=== PATIENT | female | born 1955 | race Asian ===

== ENCOUNTER → 2016-07-06 | Outpatient (CLI) | payer BC | END | disposition home or self-care (01) | LOC: C.MAMM 10:15 | PROVIDERS: ATTEND Family Medicine | DX: M85.80 Other specified disorders of bone density and structure, unspecified site (principal); Z78.0 Asymptomatic menopausal state ==

== ENCOUNTER → 2017-05-26 | Outpatient (CLI) | payer BC ==
--- NOTE | 2017-05-28 08:14 | MAMMOGRAPHY REPORT ---
BILATERAL DIGITAL SCREENING MAMMOGRAM TOMOSYNTHESIS WITH CAD: 05/26/2017 CLINICAL HISTORY: Routine screening. Patient has no complaints. TECHNIQUE: Breast tomosynthesis in addition to standard 2D mammography was performed. Current study was also evaluated with a Computer Aided Detection (CAD) system. COMPARISON: Comparison is made to exams dated: 05/11/2016 mammogram, 02/28/2015 mammogram, 01/03/2014 ma mmogram, 12/29/2012 mammogram, 12/29/2011 mammogram, and 12/08/2010 mammogram - [facility] ter. BREAST COMPOSITION: The tissue of both breasts is heterogeneously dense, which may obscure small mas ses. FINDINGS: The parenchymal pattern is unchanged. No developing mass, architectural distortion or clus ter of suspicious microcalcifications is seen in either breast. IMPRESSION: ACR BI-RADS CATEGORY 2: BENIGN There is no mammographic evidence of malignancy. A 1 year screening mammogram is recommended. The pa tient will receive written notification of the results. Approximately 10% of breast cancers are not detected with mammography. A negative mammographic report should not delay biopsy if a clinically suggestive mass is present. Britt De La Fuente M.D. ay/:05/26/2017 17:02:38 Powder Line Repairer: Amanda Grubbs, [facility] letter sent: Normal 1/2 BI-RADS Code: ACR BI-RADS Category 2: Benign
== END | disposition home or self-care (01) ==
LOC: C.MAMM 08:32
PROVIDERS: ATTEND Family Medicine
DX: Z12.31 Encounter for screening mammogram for malignant neoplasm of breast (principal)

== ENCOUNTER → 2017-06-11 | Outpatient (CLI) | payer BC ==
[~2017-06-11] MED LIST: MECL1TAB42 PO; ONDA4TAB10 SL
--- NOTE | 2017-06-11 17:01 | DIAGNOSTIC IMAGING REPORT ---
CHEST 2 VIEWS ROUTINE HISTORY: 62 years-old Female COUGH acute cough COMPARISON: Chest radiographs 07/15/2012 TECHNIQUE: PA and lateral views of the chest FINDINGS: Cardiomediastinal and hilar silhouettes are within normal limits. Mild hyperinflation and mild biapical pleural-parenchymal scarring redemonstrated without pneumothorax, pleural effusion, focal airspace consolidation or overt pulmonary edema. Bones of the chest appear grossly intact. IMPRESSION: No acute cardiopulmonary process. The above report was generated using voice recognition software. It may contain grammatical, syntax or spelling errors. Electronically signed by: David Gann M.D. 06/11/2017 5:00 PM Dictated Date/Time: 06/11/2017 4:58 PM
== END | disposition home or self-care (01) ==
LOC: C.RAD1850 16:45
PROVIDERS: ATTEND Family Medicine
DX: R05 Cough (principal)

== ENCOUNTER 2017-06-16 09:24 | Emergency (ER) | payer BC ==
[~2017-06-16] VITALS: Ht 154.9 cm; Wt 51.7 kg
[2017-06-16 09:33] VITALS: TEMP 36.4; O2SAT 97; Ht 154.9 cm; Wt 51.7 kg
[2017-06-16] MEDS ORDERED: MECLIZINE HCL 25 MG TAB PO STA (09:59)
[2017-06-16] MEDS ORDERED: ONDANSETRON INJ 2 MG/ML 2 ML VIAL IV STA (09:59)
[2017-06-16] MEDS ORDERED: LORAZEPAM 2 MG/ML 1 ML VIAL IV STA (09:59)
--- NOTE | 2017-06-16 10:01 | EMERGENCY ROOM VISIT NOTE ---
History Report prepared by Elzbieta: Naga Gallagher Under the Supervision of: Dr. Krzysztof Cheng M.D. First contact with patient: 09:37 Chief Complaint: DIZZY Stated Complaint: DIZZINESS History of Present Illness The patient is a 62 year old female who presents to the Emergency Room with complaints of constant dizziness starting around 0400 this morning. She notes that the dizziness is always there, even while laying down, and vomiting made the dizziness worse. She denies any abdominal pain. Per the , the patient has a history of vertigo a long time ago, though he notes that this feels different. Source of History: patient Onset: 0400 Position: other (global) Quality: other (dizziness) Timing: constant Modifying Factors (Worsening): other (vomiting) Associated Symptoms: + vomiting, No abdominal pain Review of Systems See HPI for pertinent positives & negatives. A total of 10 systems reviewed and were otherwise negative. Past Medical & Surgical Medical Problems: (1) History of vertigo Family History Cancer Kidney disease Kidney stones Lung disease Social History Smoking Status: Never Smoker Marital Status: Housing Status: lives with family Occupation Status: retired Current/Historical Medications Scheduled PRN Meclizine Hcl (Meclizine Hcl), 1 TAB PO TID PRN for Dizziness or Vertigo Allergies Coded Allergies: No Known Allergies (Unverified , 06/16/17) Physical Exam Vital Signs Date Time Temp Pulse Resp B/P (MAP) Pulse Ox O2 Delivery O2 Flow Rate FiO2 06/16/17 11:14 69 06/16/17 09:33 36.4 59 18 115/71 97 Room Air Physical Exam GENERAL: Patient is a pale-appearing well-nourished female. Dizziness present even when laying flat. HEAD: Normocephalic atraumatic EYES: eyes closed. Horizontal nystagmus present OROPHARYNX mucous membranes are moist no exudates present no erythema or edema present NECK: Supple no nuchal rigidity CHEST: Good equal expansion LUNGS: Clear and equal to auscultation CARDIAC: Normal S1 and S2 ABDOMEN: Soft nontender no guarding BACK: No CVA tenderness EXTREMITIES: No pain upon palpation normal muscle strength in all groups no clubbing cyanosis or edema NEURO: Patient is following commands and answering questions appropriately. Alert and oriented x3 Cranial Nerves 2-12 grossly intact Medical Decision & Procedures ER Provider Diagnostic Interpretation: Radiology results as stated below per my review and radiologist interpretation: CT HEAD WITHOUT CONTRAST (CT) CLINICAL HISTORY: Dizziness COMPARISON STUDY: No previous studies for comparison. TECHNIQUE: Axial CT of the brain is performed from the vertex to the skull base. IV contrast was not administered for this examination. A dose lowering technique was utilized adhering to the principles of ALARA. CT DOSE: 537.48 mGy.cm FINDINGS: No intra or extra-axial mass lesions are visualized. There is no CT evidence of acute cortical infarction. There is no evidence of midline shift. There is no acute hemorrhage. No calvarial fractures are visualized. There is no evidence of pathologic ventricular dilatation. There is no evidence of acute sinusitis IMPRESSION: No acute intracranial findings Electronically signed by: Gage Walters M.D. 06/16/2017 11:00 AM Dictated Date/Time: 06/16/2017 10:59 AM Laboratory Results 06/16/17 09:50 Red Blood Count 4.20, Mean Corpuscular Volume 91.9, Mean Corpuscular Hemoglobin 30.7, Mean Corpuscular Hemoglobin Concent 33.4, Mean Platelet Volume 9.8, Neutrophils (%) (Auto) 82.1, Lymphocytes (%) (Auto) 15.4, Monocytes (%) (Auto) 1.8, Eosinophils (%) (Auto) 0.0, Basophils (%) (Auto) 0.4, Neutrophils # (Auto) 5.92, Lymphocytes # (Auto) 1.11, Monocytes # (Auto) 0.13, Eosinophils # (Auto) 0.00, Basophils # (Auto) 0.03 06/16/17 09:50 Test 06/16/17 09:50 White Blood Count 7.21 K/uL (4.8-10.8) Red Blood Count 4.20 M/uL (4.2-5.4) Hemoglobin 12.9 g/dL (12.0-16.0) Hematocrit 38.6 % (37-47) Mean Corpuscular Volume 91.9 fL (80-100) Mean Corpuscular Hemoglobin 30.7 pg (25-34) Mean Corpuscular Hemoglobin Concent 33.4 g/dl (32-36) Platelet Count 244 K/uL (130-400) Mean Platelet Volume 9.8 fL (7.4-10.4) Neutrophils (%) (Auto) 82.1 % Lymphocytes (%) (Auto) 15.4 % Monocytes (%) (Auto) 1.8 % Eosinophils (%) (Auto) 0.0 % Basophils (%) (Auto) 0.4 % Neutrophils # (Auto) 5.92 K/uL (1.4-6.5) Lymphocytes # (Auto) 1.11 K/uL (1.2-3.4) Monocytes # (Auto) 0.13 K/uL (0.11-0.59) Eosinophils # (Auto) 0.00 K/uL (0-0.5) Basophils # (Auto) 0.03 K/uL (0-0.2) RDW Standard Deviation 45.1 fL (36.4-46.3) RDW Coefficient of Variation 13.5 % (11.5-14.5) Immature Granulocyte % (Auto) 0.3 % Immature Granulocyte # (Auto) 0.02 K/uL (0.00-0.02) Anion Gap 7.0 mmol/L (3-11) Est Creatinine Clear Calc Drug Dose 57.9 ml/min Estimated GFR () 98.3 Estimated GFR (Non- 84.8 BUN/Creatinine Ratio 19.4 (10-20) Calcium Level 9.3 mg/dl (8.5-10.1) Total Bilirubin 0.4 mg/dl (0.2-1) Direct Bilirubin 0.1 mg/dl (0-0.2) Aspartate Amino Transf (AST/SGOT) 24 U/L (15-37) Alanine Aminotransferase (ALT/SGPT) 35 U/L (12-78) Alkaline Phosphatase 85 U/L (45-117) Total Protein 7.9 gm/dl (6.4-8.2) Albumin 4.0 gm/dl (3.4-5.0) Thyroid Stimulating Hormone (TSH) 1.600 uIu/ml (0.300-4.500) Labs reviewed by ED physician. Medications Administered Medications (Trade) Dose Ordered Sig/Brenna Route Start Time Stop Time Status Last Admin Dose Admin Lorazepam (Ativan Inj) 0.5 mg NOW STAT IV 06/16/17 09:59 06/16/17 10:01 DC 06/16/17 10:16 0.5 MG Meclizine HCl (Antivert Tab) 25 mg NOW STAT PO 06/16/17 09:59 06/16/17 10:01 DC 06/16/17 10:15 25 MG Ondansetron HCl (Zofran Inj) 4 mg NOW STAT IV 06/16/17 09:59 06/16/17 10:01 DC 06/16/17 10:15 4 MG ECG Indication: other (dizziness) Rate (beats per minute): 67 Rhythm: normal sinus Findings: no acute ischemic change, no ectopy ED Course 0937: Past medical records reviewed. The patient was evaluated in room B12. A complete history and physical examination was performed. 0959: Zofran 4mg IV, Antivert Tab 25mg PO, Ativan 0.5mg IV 1104: I reevaluated the patient, and she was feeling much better. 1119: Upon reexamination the patient is doing well. I discussed results and treatment plan with the patient. She verbalizes agreement and understanding. The patient is ready for discharge. Medical Decision Differential diagnosis: Etiologies such as benign positional vertigo, dehydration, hypovolemia, anemia, tumor, infection, hypoglycemia, electrolyte abnormalities, cardiac sources, intracerebral event, toxicologic, neurologic, as well as others were entertained. This is a 62-year-old female who presents emergency department complaining of severe dizziness. The patient notes she has a history of vertigo in the past. She was given Ativan here in the emergency department as well as meclizine. Repeat examination revealed improvement patient's symptoms. The patient has a normal CBC normal renal profile as well as a normal CAT scan of the head. As her symptoms have been going on longer than 6 hours I do feel that the patient can be safely discharged home and she is much improved after the Ativan and meclizine. I will place her on a meclizine trial at home. Patient and were in agreement with the treatment plan. Medication Reconcilliation Current Medication List: was personally reviewed by me Blood Pressure Screening Patient's blood pressure: Normal blood pressure Impression Primary Impression: Vertigo Scribe Attestation The scribe's documentation has been prepared under my direction and personally reviewed by me in its entirety. I confirm that the note above accurately reflects all work, treatment, procedures, and medical decision making performed by me. Departure Information Dispostion Home / Self-Care Prescriptions Meclizine Hcl (MECLIZINE HCL) 25 Mg Tab 1 TAB PO TID Y for Dizziness or Vertigo for 10 Days, #30 TAB Prov: Krzysztof Cheng MD 06/16/17 Referrals Madan Vizcaino M.D. (PCP) Forms HOME CARE DOCUMENTATION FORM, IMPORTANT VISIT INFORMATION, School Instructions, Work Instructions Patient Instructions ED BPV Vertigo, My [facility] Additional Instructions You received narcotic or benzodiazepene medication while in the emergency room today. This is an addictive medication that may cause drowziness as well as constipation. Do not drive, operate heavy machinery, or drink alcohol under the influence of this medication. You have been examined and treated today on an emergency basis only. This is not a substitute for, or an effort to provide, complete comprehensive medical care. It is impossible to recognize and treat all injuries or illnesses in a single emergency department visit. It is therefore important that you follow up closely with Dr Vizcaino. Call as soon as possible for an appointment. Thank you for your time and consideration. I look forward to speaking with you again soon. Please don't hesitate to call us if you have any questions.
[2017-06-16 10:09] LABS: BASO % 0.4 %; BASO ABS # 0.03 K/uL (0-0.2); COMPLETE YES; HEMATOCRIT 38.6 % (37-47); IG% 0.3 %; LYMPH % 15.4 %; LYMPH ABS # 1.11 K/uL (1.2-3.4); MEAN CELL VOLUME 91.9 fL (80-100); MEAN CORPUSCULAR HEMOGLOBIN 30.7 pg (25-34); MEAN CORPUSCULAR HGB CONC 33.4 g/dl (32-36); MEAN PLATELET VOLUME 9.8 fL (7.4-10.4); MONO % 1.8 %; NEUT % 82.1 %; PLATELET COUNT 244 K/uL (130-400); WHITE BLOOD COUNT 7.21 K/uL (4.8-10.8)
[2017-06-16 10:26] LABS: BUN/CREATININE RATIO 19.4 (10-20); CALCIUM 9.3 mg/dl (8.5-10.1); CREATININE 0.75 mg/dl (0.60-1.20); POTASSIUM 3.6 mmol/L (3.5-5.1)
[2017-06-16 10:37] LABS: THYROID STIMULATING HORMONE 1.6 uIu/ml (0.300-4.500)
--- NOTE | 2017-06-16 11:01 | DIAGNOSTIC IMAGING REPORT ---
CT HEAD WITHOUT CONTRAST (CT) CLINICAL HISTORY: Dizziness COMPARISON STUDY: No previous studies for comparison. TECHNIQUE: Axial CT of the brain is performed from the vertex to the skull base. IV contrast was not administered for this examination. A dose lowering technique was utilized adhering to the principles of ALARA. CT DOSE: 537.48 mGy.cm FINDINGS: No intra or extra-axial mass lesions are visualized. There is no CT evidence of acute cortical infarction. There is no evidence of midline shift. There is no acute hemorrhage. No calvarial fractures are visualized. There is no evidence of pathologic ventricular dilatation. There is no evidence of acute sinusitis IMPRESSION: No acute intracranial findings Electronically signed by: Gage Walters M.D. 06/16/2017 11:00 AM Dictated Date/Time: 06/16/2017 10:59 AM
[2017-06-16] MEDS ORDERED: MECL1TAB42 PO (11:26)
[2017-06-16 11:39] VITALS: PULSE 67
[2017-06-16] MEDS ORDERED: ONDA4TAB10 SL (11:39)
[2017-06-16 11:41] VITALS: BP 89/63
== END 2017-06-16 11:50 | disposition home or self-care (01) ==
LOC: C.EDB 09:26
DX: R42 Dizziness and giddiness (principal); Z84.1 Family history of disorders of kidney and ureter